=== PATIENT | female | born 1970 | race African-American/Black ===

== ENCOUNTER 2018-12-07 11:42 | Emergency (ER) | payer OTHER ==
[2018-12-07] MEDS ORDERED: PROCHLORPERAZINE EDISYLATE 10 MG/2 ML VIAL ONE (12:09)
[2018-12-07] MEDS ORDERED: SODIUM CHLORIDE 0.9% 1000ML 1,000 ML IV ONE (12:10)
[2018-12-07 12:20] LABS: BASOPHILS % (AUTO) 0.9 % (0.0-5.0); EOSINOPHILS % (AUTO) 0.8 % (0.0-8.0); HEMATOCRIT 37.6 % (36-48); LYMPHOCYTES % (AUTO) 49.4 % (21.0-51.0); MEAN CORPUSCULAR HEMOGLOBIN 29.8 pg (27.0-33.0); MEAN CORPUSCULAR HGB CONC 33.9 g/dL (32.0-36.0); MEAN CORPUSCULAR VOLUME 87.8 fL (79-99); MONOCYTES % (AUTO) 12.6 % (3.0-13.0); NEUTROPHILS % (AUTO) 36.3 % (40.0-77.0); NUCLEATED RED BLOOD CELLS 0.1 % (0.0-0.19); PLATELET COUNT (AUTO) 238 K/uL (130-400); RED BLOOD CELL COUNT(AUTO) 4.28 MIL/uL (4.00-5.50); WHITE BLOOD COUNT (AUTO) 4.5 K/uL (4.8-10.8)
[2018-12-07 12:26] LABS: POTASSIUM 3.9 mmol/L (3.5-5.1)
== END 2018-12-07 15:20 | disposition home or self-care (01) ==
LOC: EDH 11:42
DX: R51 Headache (principal); F32.9 Major depressive disorder, single episode, unspecified; F41.9 Anxiety disorder, unspecified; Z90.49 Acquired absence of other specified parts of digestive tract; Z88.2 Allergy status to sulfonamides; Z88.1 Allergy status to other antibiotic agents; Z88.8 Allergy status to other drugs, medicaments and biological substances
CPT/HCPCS: 36415; 70450; 80048; 81025; 85025; 96374; 99285; J0780; J7030